=== PATIENT | female | born 1970 | race Two or more races ===

== ENCOUNTER 2024-01-22 22:28 | Emergency (ER) | payer OTHER ==
[~2024-01-22] VITALS: Ht 152.4 cm; Wt 59.0 kg
[~2024-01-22 22:28] MED LIST: AMLO-213 PO; BENA20TA9 PO; HYDR-4303 PO
[2024-01-22] MEDS ORDERED: KETOROLAC TROMETHAMINE INJ 30 MG/ML VIAL ONE (23:41)
[2024-01-22] MEDS: KETOROLAC TROMETHAMINE INJ 60 MG/2 ML VIAL IM ONE (23:47)
[2024-01-23] MEDS ORDERED: KETO10TA2 PO (00:09)
[2024-01-23 00:40] VITALS: BP 156/98; TEMP 98; O2SAT 100
== END 2024-01-23 00:40 | disposition home or self-care (01) ==
LOC: ER 22:31
DX: Z04.3 Encounter for examination and observation following other accident (principal); I10 Essential (primary) hypertension; Z79.899 Other long term (current) drug therapy; V49.3XXA Car occupant (driver) (passenger) injured in unspecified nontraffic accident, initial encounter; Y93.89 Activity, other specified; Y92.89 Other specified places as the place of occurrence of the external cause; Y99.8 Other external cause status
CPT/HCPCS: 99284; 96372; 72040; 72100; 72074; J1885